=== PATIENT | female | born 1975 | race Asian ===

== ENCOUNTER 2018-08-20 23:52 | Emergency (ER) | payer OTHER ==
[~2018-08-20] VITALS: Ht 170.2 cm; Wt 63.5 kg
[2018-08-21] VITALS (8 sets, daily range): BP systolic 83–116; BP diastolic 37–83
--- NOTE | 2018-08-21 00:41 | Emergency Room Report ---
History of Present Illness General Chief Complaint: General Complaint Source: Patient, EMS Present Illness HPI Patient was brought in by paramedics There was a report of seroquel ingestion Unknown amount History of present illness is limited as the patient is a poor historian Unclear exactly who contacted the paramedics At this time patient reports that she just wanted to sleep and took extra pills for that however cannot provide specific numbers Patient was brought in with a sample box of 4 tablets 50 mg seroquel Denies any homicidal or suicidal thoughts at this time Allergies: Coded Allergies: No Known Allergies (Unverified , 08/21/18) Patient History Past Medical History: see triage record Pertinent Family History: none Last Menstrual Period: 08/10/18 Now: No Reviewed Nursing Documentation: PMH: Agreed; PSxH: Agreed Nursing Documentation-PMH Past Medical History: No History, Except For History Of Psychiatric Problem: Yes Review of Systems All Other Systems: negative except mentioned in HPI Physical Exam Vital Signs Date Time Temp Pulse Resp B/P (MAP) Pulse Ox O2 Delivery O2 Flow Rate FiO2 08/21/18 00:03 98.0 102 22 132/74 99 Room Air 98.1 Sp02 EP Interpretation: reviewed, normal General Appearance: well appearing, no apparent distress Head: normocephalic, atraumatic Eyes: bilateral eye PERRL, bilateral eye EOMI ENT: hearing grossly normal, normal pharynx, TMs + canals normal, uvula midline Neck: full range of motion, supple, no meningismus, no bony tend Respiratory: lungs clear, normal breath sounds, no rhonchi, no respiratory distress, no retraction, no accessory muscle use Cardiovascular #1: normal peripheral pulses, regular rate, rhythm, no edema, no gallop, no JVD, no murmur Gastrointestinal: normal bowel sounds, non tender, soft, no mass, no organomegaly, non-distended, no guarding, no hernia, no pulsatile mass, no rebound Genitourinary: no CVA tenderness Musculoskeletal: normal inspection Neurologic: oriented x3, responsive, 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 tested, motor strength/ tone normal, sensory intact Psychiatric: other - Blunted affect Skin: normal color, no rash, warm/dry, palpation normal Lymphatic: normal inspection, no adenopathy Medical Decision Making ER Course Given the patient's history exam and complaints blood work and EKG was obtained 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 EKG is appropriate there is some minimal CT prolongation however the QRS itself appears normal Blood work is also appropriate Patient is medically cleared Requiring psychiatric clearance Labs Test 08/21/18 00:02 08/21/18 00:40 Urine HCG, Qualitative Negative (NEGATIVE) Urine Opiates Screen Negative (NEGATIVE) Urine Barbiturates Screen Negative (NEGATIVE) Phencyclidine (PCP) Screen Negative (NEGATIVE) Urine Amphetamines Screen Negative (NEGATIVE) Urine Benzodiazepines Screen Negative (NEGATIVE) Urine Cocaine Screen Negative (NEGATIVE) Urine Marijuana (THC) Screen Negative (NEGATIVE) White Blood Count 7.3 K/UL (4.8-10.8) Red Blood Count 3.19 M/UL (4.20-5.40) Hemoglobin 9.9 G/DL (12.0-16.0) Hematocrit 28.1 % (37.0-47.0) Mean Corpuscular Volume 88 FL (80-99) Mean Corpuscular Hemoglobin 31.2 PG (27.0-31.0) Mean Corpuscular Hemoglobin Concent 35.3 G/DL (32.0-36.0) Red Cell Distribution Width 11.6 % (11.6-14.8) Platelet Count 153 K/UL (150-450) Mean Platelet Volume 7.4 FL (6.5-10.1) Neutrophils (%) (Auto) 64.9 % (45.0-75.0) Lymphocytes (%) (Auto) 28.1 % (20.0-45.0) Monocytes (%) (Auto) 4.8 % (1.0-10.0) Eosinophils (%) (Auto) 0.4 % (0.0-3.0) Basophils (%) (Auto) 1.9 % (0.0-2.0) Sodium Level 143 MMOL/L (136-145) Potassium Level 4.5 MMOL/L (3.5-5.1) Chloride Level 113 MMOL/L (98-107) Carbon Dioxide Level 20 MMOL/L (21-32) Anion Gap 10 mmol/L (5-15) Blood Urea Nitrogen 4 mg/dL (7-18) Creatinine 0.3 MG/DL (0.55-1.30) Estimat Glomerular Filtration Rate > 60 mL/min (>60) Glucose Level 79 MG/DL (74-106) Calcium Level 6.3 MG/DL (8.5-10.1) Total Bilirubin 0.4 MG/DL (0.2-1.0) Aspartate Amino Transf (AST/SGOT) 40 U/L (15-37) Alanine Aminotransferase (ALT/SGPT) 14 U/L (12-78) Alkaline Phosphatase 35 U/L (46-116) Total Protein 5.5 G/DL (6.4-8.2) Albumin 2.5 G/DL (3.4-5.0) Globulin 3.0 g/dL Albumin/Globulin Ratio 0.8 (1.0-2.7) Salicylates Level < 0.2 ug/mL (2.8-20) Acetaminophen Level < 2 MCG/ML (10-30) Serum Alcohol 90 mg/dL Last Vital Signs Date Time Temp Pulse Resp B/P (MAP) Pulse Ox O2 Delivery O2 Flow Rate FiO2 08/21/18 00:03 98.0 102 22 132/74 99 Room Air 98.1 Status: improved Signed Out To: on coming physician 6:30 Samuel Baez DO Aug 21, 2018 00:41
[2018-08-21 00:54] LABS: BASOPHILS % (AUTO) 1.9 % (0.0-2.0); EOSINOPHILS % (AUTO) 0.4 % (0.0-3.0); HEMATOCRIT 28.1 % (37.0-47.0); HEMOGLOBIN 9.9 G/DL (12.0-16.0); LYMPHOCYTES % (AUTO) 28.1 % (20.0-45.0); MEAN CORPUSCULAR VOLUME 88 FL (80-99); MONOCYTES % (AUTO) 4.8 % (1.0-10.0); NEUTROPHILS % (AUTO) 64.9 % (45.0-75.0); PLATELET COUNT 153 K/UL (150-450); RED BLOOD COUNT 3.19 M/UL (4.20-5.40); RED CELL DISTRIBUTION WIDTH 11.6 % (11.6-14.8); WHITE BLOOD COUNT 7.3 K/UL (4.8-10.8)
[2018-08-21 01:02] LABS: ANION GAP 10 mmol/L (5-15); BLOOD UREA NITROGEN 4 mg/dL (7-18); CALCIUM 6.3 MG/DL (8.5-10.1); CARBON DIOXIDE 20 MMOL/L (21-32); CHLORIDE 113 MMOL/L (98-107); CREATININE 0.3 MG/DL (0.55-1.30); POTASSIUM 4.5 MMOL/L (3.5-5.1); SODIUM 143 MMOL/L (136-145)
[2018-08-21 01:07] LABS: ALANINE AMINOTRANSFERASE 14 U/L (12-78); ALBUMIN 2.5 G/DL (3.4-5.0); ALBUMIN/GLOBULIN RATIO 0.8 (1.0-2.7); ALKALINE PHOSPHATASE 35 U/L (46-116); ASPARTATE AMINO TRANSFERASE 40 U/L (15-37); BILIRUBIN,TOTAL 0.4 MG/DL (0.2-1.0)
[2018-08-22 04:00] VITALS: BP 109/67
[2018-08-22 10:58] VITALS: BP 113/72
[2018-08-22 15:40] VITALS: BP 113/72
--- NOTE | 2018-08-23 16:30 | Consultation ---
DATE OF CONSULTATION: 08/22/2018 HISTORY OF PRESENT ILLNESS: The patient was admitted yesterday for danger to self. This is a 43-year-old [place] female with a history of depression and anxiety. She has been under the care of . The patient has been taking Seroquel and SSRIs. On her birthday on 08/20/2019, she found out that her [place] who she brought to the [facility] has been cheating on her. The patient was very distraught and stated that she had a lot of emotional pain. She took three pills of Seroquel to numb her pain. During evaluation, the patient endorsed depressed mood, anhedonia, worthlessness, and anxiety. Also, denied any suicidal ideation. She believes that there are other solutions to her current problem and she wants to go to her psychiatrist and remain in treatment. The patient did not endorse any manic or psychotic symptoms. PAST PSYCHIATRIC HISTORY: Depression and anxiety. No psychiatric hospitalization. PAST MEDICAL HISTORY: None. ALLERGIES: No known drug allergies. SUBSTANCE ABUSE HISTORY: No known history of illicit drug use or alcohol. MENTAL STATUS EXAMINATION: The patient is oriented times self, place, and situation she is in. Mood is depressed. Affect is blunted, congruent with mood. Thought process is linear. Thought content, no suicidal or homicidal ideation. No delusions. No auditory or visual hallucinations. Insight and judgment fair. ASSESSMENT: AXIS I Major depressive disorder, recurrent, moderate. AXIS II Deferred. AXIS III None. AXIS IV Moderate. AXIS V 60. PLAN: 1. The patient will be referred back to her outpatient psychiatrist, and she will resume her psychotropic medication. 2. I also recommended the patient to go on disability and with family for a while. The patient is not an imminent danger to self or others. The patient will be discharged. Emani Lopez M.D. DR: MOI JOB#: [id number] CC:
--- NOTE | 2018-08-23 19:50 | Cardiology Report ---
APPROVED REPORT EKG Measurement Heart [id number] Normal sinus rhythm Possible Left atrial enlargement Prolonged QT Abnormal ECG
== END 2018-08-22 12:00 | disposition home or self-care (01) ==
LOC: EDBD 23:52 → EMR 08-21 00:36
DX: T43.591A Poisoning by other antipsychotics and neuroleptics, accidental (unintentional), initial encounter (principal); Y92.9 Unspecified place or not applicable
CPT/HCPCS: 36415; 80053; 80307; 81025; 85025; 93005; 99285; G0480; 80329